=== PATIENT | male | born 1980 | race Caucasian/White ===

== ENCOUNTER 2019-12-15 11:18 | Emergency (ER) | payer OTHER ==
[~2019-12-15] VITALS: Ht 180.3 cm; Wt 89.7 kg
[2019-12-15] MEDS ORDERED: DOXYCYCLINE HY100 MG PO ×2 (11:37→11:57)
[2019-12-15] MEDS ORDERED: ULTRAM50 MG PO (11:37)
[2019-12-15] MEDS ORDERED: KEFLEX500 MG PO (11:57)
== END 2019-12-15 12:24 | disposition home or self-care (01) ==
LOC: ED 11:18
PROC: 0H9GXZZ Drainage of Left Hand Skin, External Approach (ICD-10-PCS; principal; 2019-12-15)
DX: L03.114 Cellulitis of left upper limb (principal); Z88.2 Allergy status to sulfonamides; Z79.899 Other long term (current) drug therapy
CPT/HCPCS: 10060; 99283-25